=== PATIENT | female | born 1970 | race Caucasian/White ===

== ENCOUNTER 2022-10-24 09:12 | Emergency (ER) | payer BC ==
[~2022-10-24] VITALS: Ht 154.9 cm; Wt 59.0 kg
[2022-10-24] MEDS ORDERED: MECLIZINE 25MG TABLET PO ONE (09:45)
[2022-10-24 10:24] LABS: BASOPHILS % 0.2 % (0.0-2.0); EOSINOPHILS % 0.7 % (0.0-5.0); HEMATOCRIT. 41.2 % (36.0-48.0); HEMOGLOBIN. 14.1 g/dL (12.0-16.0); MEAN CORPUSCULAR HEMOGLOBIN 28.4 pg (28.0-32.0); MEAN CORPUSCULAR VOLUME 83.4 fL (81.0-99.0); MEAN PLATELET VOLUME 8.9 fl (7.4-10.4); MONOCYTES % 4.9 % (2.0-8.0); NEUTROPHILS % 59.2 % (40.0-76.0); PLATELET 222 x1000/uL (130-400); RED BLOOD CELL COUNT 4.94 mill/uL (4.2-5.4)
[2022-10-24 10:33] LABS: CHLORIDE 107 mEq/L (98-107)
[2022-10-24 10:40] LABS: HCG SCREEN NEGATIVE
[2022-10-24] MEDS ORDERED: MECL-159 PO (11:09)
[2022-10-24] MEDS ORDERED: MECLIZINE 12.5MG TABLET PO NR (12:00)
[2022-10-24 12:30] VITALS: BP 112/65
[2022-10-24] MEDS ORDERED: ONDANSETRON HCL 4MG/2ML INJ IV PRN (14:30)
[2022-10-24] MEDS ORDERED: CLONIDINE 0.1MG TABLET PO PRN (14:30)
[2022-10-24] MEDS ORDERED: DOCUSATE SODIUM 100MG CAPSULE PO PRN (14:30)
[2022-10-24] MEDS ORDERED: ACETAMINOPHEN 325MG TABLET PO PRN (14:30)
[2022-10-24] MEDS ORDERED: ENOXAPARIN 40MG/0.4ML SYR SUBCUT SCH (15:00)
[2022-10-24] MEDS ORDERED: LACTATED RINGERS 1,000 ML IV SCH (15:00)
[2022-10-24] MEDS ORDERED: FAMOTIDINE 20MG TABLET PO SCH (21:00)
== END 2022-10-24 18:17 | disposition left against medical advice (07) ==
LOC: ER 09:21 → EDBEDREQTM 13:57 → EDBEDREQSVC 13:57 → EDBEDREQ 13:57 → EDBEDREQSVC 17:27 → ER 18:17
DX: R42 Dizziness and giddiness (principal); I10 Essential (primary) hypertension; E78.00 Pure hypercholesterolemia, unspecified
CPT/HCPCS: 36415; 70450; 71045; 80053; 83880; 84484; 84703; 85025; 85379; 93005; 96365; 96372; 99285; J1650; J2405; J8597; Z7610